=== PATIENT | female | born 1980 | race Caucasian/White ===

== ENCOUNTER 2018-06-12 11:57 | Emergency (ER) | payer OTHER ==
--- NOTE | 2018-06-12 12:55 | EDPHY ---
H & P Time Seen by Provider: 06/12/18 12:54 HPI/ROS: Chief complaint. Migraine with difficulty speaking HPI. Patient is a 37-year-old female with history of migraine headaches. This morning she had a typical aura preceding her migraine especially with right vision of wavy lines. She went to order some food and she could not get the words out. She knew what she wanted to say but the words would not come out of her mouth. This lasted about 15 min. She then developed a headache. She had no weakness or paresthesias to arms or legs. No chest discomfort, shortness of breath, abdominal pain, nausea vomiting diarrhea. She took ibuprofen prior to arrival for her headache and is fairly comfortable. She has never had trouble speaking with her migraines previously. No recent head injury. Symptoms occurred about 10:00 a.m. Today. ROS 10 systems were reviewed and negative with the exception of the elements mentioned in the history of present illness Past Medical/Surgical History: Migraine headaches Social History: , nonsmoker, no alcohol Smoking Status: Never smoked Physical Exam: General Appearance: Alert well-developed female mild distress vital signs are stable Eyes: Pupils equal and round no pallor or injection. ENT, Mouth: Mucous membranes are moist. Respiratory: There are no retractions, lungs are clear to auscultation. Cardiovascular: Regular rate and rhythm. Gastrointestinal: Abdomen is soft and nontender, no masses, bowel sounds normal. Neurological: Awake and alert, sensory and motor exams grossly normal. Speech is now normal. Cranial nerves are normal. There is no pronator drift. Finger- to-nose is intact bilaterally Skin: Warm and dry, no rashes. Musculoskeletal: Neck is supple nontender. Extremities symmetrical, full range of motion. Psychiatric: Patient is oriented X 3, there is no agitation. Constitutional: Initial Vital Signs Temperature (C) 37.0 C 06/12/18 12:01 Heart Rate 78 06/12/18 12:01 Respiratory Rate 16 06/12/18 12:01 Blood Pressure 141/82 H 06/12/18 12:01 O2 Sat (%) 98 06/12/18 12:01 O2 Delivery Mode Room Air Allergies/Adverse Reactions: No Known Allergies Allergy (Unverified 06/12/18 12:00) Home Medications: Medication Instructions Recorded Ortho Tri-Cyclen Lo Tablet 06/12/18 Medical Decision Making - Diagnostics Imaging Results: Imaging Impressions Brain MRI 06/12/18 13:07 Impression: Normal MRI of the brain without contrast. Results called to Dr. Marvel Aguilar at 2:45 PM MRI brain is normal. Reviewed by me and discussed with Dr. Fuller Procedures: IV normal saline ED Course/Re-evaluation: Re-evaluation 2:55 p.m. Patient is stable. She and I discussed imaging and lab results. She really has no headache. Has no speech difficulty. She and I discussed control pills and migraines. We discussed treatment plan including criteria for return importance of follow-up and further evaluation. She expresses understanding and agreement Differential Diagnosis: I considered CVA, brain tumor, intracranial bleeding. This is apparently migraine with a new neurologic symptom however otherwise a fairly typical migraine headache. No evidence for meningitis - Data Points Laboratory Results: Laboratory Results 06/12/18 13:30 06/12/18 13:30 06/12/18 06/12/18 06/12/18 13:30 13:30 13:30 WBC 7.83 10^3/uL 10^3/uL (3.80-9.50) RBC 4.45 10^6/uL 10^6/uL (4.18-5.33) Hgb 14.2 g/dL g/dL (12.6-16.3) Hct 42.1 % % (38.0-47.0) MCV 94.6 fL fL (81.5-99.8) MCH 31.9 pg pg (27.9-34.1) MCHC 33.7 g/dL g/dL (32.4-36.7) RDW 12.1 % % (11.5-15.2) Plt Count 259 10^3/uL 10^3/uL (150-400) MPV 8.6 fL L fL (8.7-11.7) Neut % (Auto) 61.7 % % (39.3-74.2) Lymph % (Auto) 31.0 % % (15.0-45.0) [place] % (Auto) 6.0 % % (4.5-13.0) Eos % (Auto) 0.5 % L % (0.6-7.6) Baso % (Auto) 0.5 % % (0.3-1.7) Nucleat RBC Rel Count 0.0 % % (0.0-0.2) Absolute Neuts (auto) 4.83 10^3/uL 10^3/uL (1.70-6.50) Absolute Lymphs (auto) 2.43 10^3/uL 10^3/uL (1.00-3.00) Absolute Monos (auto) 0.47 10^3/uL 10^3/uL (0.30-0.80) Absolute Eos (auto) 0.04 10^3/uL 10^3/uL (0.03-0.40) Absolute Basos (auto) 0.04 10^3/uL 10^3/uL (0.02-0.10) Absolute Nucleated RBC 0.00 10^3/uL 10^3/uL (0-0.01) Immature Gran % 0.3 % % (0.0-1.1) Immature Gran # 0.02 10^3/uL 10^3/uL (0.00-0.10) Sodium 139 mEq/L mEq/L (135-145) Potassium 4.0 mEq/L mEq/L (3.3-5.0) Chloride 106 mEq/L mEq/L (97-110) Carbon Dioxide 24 mEq/l mEq/l (22-31) Anion Gap 9 mEq/L mEq/L (8-16) BUN 13 mg/dL mg/dL (7-23) Creatinine 0.7 mg/dL mg/dL (0.6-1.0) Estimated GFR > 60 Glucose 109 mg/dL H mg/dL (70-100) Calcium 9.4 mg/dL mg/dL (8.5-10.4) Beta HCG, Qual NEGATIVE Departure - Departure Disposition: Home, Routine, Self-Care Clinical Impression: Migraine headache Qualifiers: Migraine type: with aura Status migrainosus presence: without status migrainosus Intractability: not intractable Qualified Code(s): G43.109 - Migraine with aura, not intractable, without status migrainosus Condition: Good Instructions: Migraine Headache (ED) Additional Instructions: Return for worsening symptoms Follow-up with Neurology or Di[facility] for continued treatment of migraine headaches as well as discussion of control pills an association with migraines Referrals: NONE *PRIMARY CARE P,. [Primary Care Provider] - As per Instructions [facility] [Outside] - As per Instructions Akin Faulkner MD [Medical Doctor] - As per Instructions
[2018-06-12 13:56] LABS: PLATELET COUNT 259 10^3/uL (150-400)
[2018-06-12 15:36] VITALS: BP 138/74
== END 2018-06-12 15:36 | disposition home or self-care (01) ==
DX: G43.109 Migraine with aura, not intractable, without status migrainosus (principal)